=== PATIENT | female | born 1950 | race Caucasian/White ===

== ENCOUNTER 2019-01-15 10:00 | Outpatient (RCR) | payer MEDICARE, BC | END 2019-01-16 | LOC: PT 10:00 | PROVIDERS: ATTEND Neurological Surgery | DX: M48.061 Spinal stenosis, lumbar region without neurogenic claudication (principal); M62.81 Muscle weakness (generalized) ==

== ENCOUNTER 2019-02-15 08:58 | Outpatient (RCR) | payer MEDICARE, BC | END 2019-02-16 | LOC: PT 08:58 | PROVIDERS: ATTEND Neurological Surgery | DX: M48.061 Spinal stenosis, lumbar region without neurogenic claudication (principal) | CPT/HCPCS: 97139 ==